=== PATIENT | male | born 2000 | race African-American/Black ===

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

== ENCOUNTER 2022-02-15 12:52 | Emergency (ER) | payer MEDICAID, OTHER ==
[~2022-02-15] VITALS: Ht 170.2 cm; Wt 84.0 kg
[2022-02-15 13:01] VITALS: BP 146/97
[2022-02-15] MEDS ORDERED: ONDANSETRON 4MG ODT PO ONE (14:30)
[2022-02-15 14:48] LABS: BASOPHILS % 0.6 % (0.0-2.0); EOSINOPHILS % 0.7 % (0.0-5.0); HEMATOCRIT. 46.3 % (42.0-52.0); HEMOGLOBIN. 15.2 g/dL (14.0-18.0); LYMPHOCYTES % 37.7 % (20.0-50.0); MEAN CORPUSCULAR VOLUME 82.2 fL (80.0-94.0); MEAN PLATELET VOLUME 8.1 fl (7.4-10.4); MONOCYTES % 8.5 % (2.0-8.0); NEUTROPHILS % 52.5 % (40.0-76.0); PLATELET 244 x1000/uL (130-400); RED BLOOD CELL COUNT 5.63 mill/uL (4.7-6.1); RED CELL DISTRIBUTION WIDTH 13.8 % (11.6-14.6)
[2022-02-15 14:58] LABS: CHLORIDE 110 mEq/L (98-107)
== END 2022-02-15 17:03 | disposition home or self-care (01) ==
LOC: ER 14:09
DX: R10.13 Epigastric pain (principal); R11.10 Vomiting, unspecified; R19.7 Diarrhea, unspecified; Z20.822 Contact with and (suspected) exposure to COVID-19
CPT/HCPCS: 36415; 76705; 80053; 83690; 85025; 87426; 99284; Q0162

== ENCOUNTER 2023-03-30 06:41 | Emergency (ER) | payer MEDICAID, OTHER ==
[~2023-03-30] VITALS: Ht 172.7 cm; Wt 84.0 kg
[2023-03-30 06:45] VITALS: BP 153/90; PULSE 74; RESP 18; TEMP 98.5; O2SAT 100
[2023-03-30] MEDS ORDERED: LIDOCAINE HCL/PF 1% 10 MG/ML 5ML VIAL INFIL ONE (08:15)
== END 2023-03-30 10:01 | disposition home or self-care (01) ==
LOC: ER 06:41
DX: S61.210A Laceration without foreign body of right index finger without damage to nail, initial encounter (principal); W26.0XXA Contact with knife, initial encounter; Y93.89 Activity, other specified; Y92.89 Other specified places as the place of occurrence of the external cause; Y99.8 Other external cause status
CPT/HCPCS: 12001; 99282

== ENCOUNTER 2023-08-07 15:44 | Emergency (ER) | payer MEDICAID ==
[~2023-08-07] VITALS: Ht 172.7 cm; Wt 71.0 kg
[~2023-08-07 15:44] MED LIST: AMOX1TAB16 MT
[2023-08-07 16:16] VITALS: TEMP 98.7; O2SAT 100
[2023-08-07] MEDS ORDERED: IBUP-2029 MT (17:06)
[2023-08-07 17:15] VITALS: BP 159/88; PULSE 94; RESP 16
[2023-08-07] MEDS ORDERED: IBUPROFEN 600MG TABLET PO ONE (17:15)
== END 2023-08-07 18:26 | disposition home or self-care (01) ==
LOC: ER 15:44
DX: R51.9 Headache, unspecified (principal)
CPT/HCPCS: 99282

== ENCOUNTER 2024-04-05 20:49 | Emergency (ER) | payer OTHER ==
[~2024-04-05] VITALS: Ht 172.7 cm; Wt 97.0 kg
[~2024-04-05 20:49] MED LIST changes: +IBUP-2029 MT
[2024-04-05 21:19] VITALS: O2SAT 99
[2024-04-05] MEDS: IBUPROFEN 600MG TABLET PO ONE (22:04)
[2024-04-05 23:13] LABS: CLARITY URINE CLEAR (CLEAR); COLOR URINE YELLOW (YELLOW); GLUCOSE URINE NEGATIVE (NEGATIVE); KETONES URINE NEGATIVE (NEGATIVE); LEUKOCYTE ESTERASE URINE NEGATIVE (NEGATIVE); NITRITE URINE NEGATIVE (NEGATIVE); OCCULT BLOOD URINE NEGATIVE (NEGATIVE); PROTEIN URINE NEGATIVE (NEGATIVE); SPECIFIC GRAVITY URINE 1.017 (1.005-1.030)
[2024-04-05] MEDS ORDERED: IBUP-2029 MT (23:25)
[2024-04-05] MEDS ORDERED: AMOX-494 MT (23:25)
[2024-04-05 23:30] VITALS: BP 137/91; PULSE 107; RESP 18; TEMP 98
== END 2024-04-05 23:40 | disposition home or self-care (01) ==
LOC: ER 20:49
DX: J02.9 Acute pharyngitis, unspecified (principal); B34.9 Viral infection, unspecified
CPT/HCPCS: 81003; 99283

== ENCOUNTER 2024-04-10 14:25 | Emergency (ER) | payer OTHER ==
[~2024-04-10] VITALS: Ht 172.7 cm; Wt 86.5 kg
[~2024-04-10 14:25] MED LIST changes: +AMOX-494 MT
[2024-04-10 14:45] VITALS: BP 118/62; PULSE 98; RESP 16; TEMP 98.6; O2SAT 99
[2024-04-10 15:32] LABS: BASOPHILS % 0.4 % (0.0-2.0); EOSINOPHILS % 3.2 % (0.0-5.0); HEMATOCRIT. 41.1 % (42.0-52.0); HEMOGLOBIN. 13.3 g/dL (14.0-18.0); LYMPHOCYTES % 34.6 % (20.0-50.0); MEAN CORPUSCULAR HEMOGLOBIN 25.9 pg (28.0-32.0); MEAN CORPUSCULAR HGB CONC 32.3 g/dL (31.0-37.0); MEAN CORPUSCULAR VOLUME 80.2 fL (80.0-94.0); MEAN PLATELET VOLUME 6.9 fl (7.4-10.4); MONOCYTES % 10.2 % (2.0-8.0); NEUTROPHILS % 51.6 % (40.0-76.0); PLATELET 345 x1000/uL (130-400); RED BLOOD CELL COUNT 5.13 mill/uL (4.7-6.1); RED CELL DISTRIBUTION WIDTH 13.6 % (11.6-14.6); WHITE BLOOD COUNT 5.9 x1000/uL (4.5-11.0)
[2024-04-10 15:34] LABS: CHLORIDE 110 mEq/L (98-107); SODIUM 141 mEq/L (136-145)
[2024-04-10 15:35] LABS: CALCIUM 9.2 mg/dL (8.7-10.4); CARBON DIOXIDE 26 mEq/L (21-32)
[2024-04-10 15:40] LABS: GLUCOSE 91 mg/dL (70-105)
[2024-04-10 15:41] LABS: UREA NITROGEN BLOOD 7 mg/dL (9-23)
[2024-04-10 15:42] LABS: ALANINE AMINOTRANSFERASE 41 IU/L (10-49); ALBUMIN 4.8 g/dL (3.2-4.8); ASPARTATE AMINOTRANSFERASE 29 IU/L (<34); BILIRUBIN DIRECT 0.3 mg/dL (<=3.0)
[2024-04-10 15:43] LABS: BILIRUBIN TOTAL 0.8 mg/dL (0.1-1.0); PROTEIN TOTAL 7.2 g/dL (6.0-8.3)
[2024-04-10 16:06] LABS: INR 0.9; PROTHROMBIN TIME 10.3 sec (9.6-11.0)
== END 2024-04-11 00:14 | disposition left against medical advice (07) ==
LOC: ER 14:25
DX: R10.11 Right upper quadrant pain (principal); Z79.899 Other long term (current) drug therapy
CPT/HCPCS: 36415; 80048; 80076; 85025; 99283